=== PATIENT | male | born 1960 | race Caucasian/White ===

== ENCOUNTER 2017-10-14 06:58 | Day surgery (SDC) | payer BC ==
[2017-10-14] MEDS ORDERED: NS 500 ML IV 500 ML IV ONE (07:17)
[2017-10-14] MEDS ORDERED: TETRACAINE 0.5% OPHTH 1 DOSE AFFEYE ONE ×3 (07:25→09:10)
[2017-10-14] MEDS ORDERED: VIGAMOX 0.5% OPHTH 1 DOSE AFFEYE ONE ×4 (07:26→09:40)
[2017-10-14] MEDS ORDERED: PROLENSA OPHTH 1 DOSE AFFEYE ONE (07:37)
[2017-10-14] MEDS ORDERED: ALPHAGAN-P OPHTH 1 DOSE AFFEYE ONE (07:38)
[2017-10-14] MEDS ORDERED: VISINE-A OPHTH 1 DOSE AFFEYE ONE (07:39)
[2017-10-14] MEDS ORDERED: MYDRIACIL OPHTH 1 DOSE AFFEYE ONE ×4 (07:40→07:46)
[2017-10-14] MEDS ORDERED: AK-DILATE 2.5% OPHTH 1 DOSE OP ONE ×4 (07:40→07:46)
[2017-10-14] MEDS ORDERED: CYCLOGYL 1% OPHTH 1 DOSE OP ONE ×4 (07:40→07:46)
[2017-10-14] MEDS ORDERED: VERSED ONE (08:04)
[2017-10-14] MEDS ORDERED: VERSED IVP ONE ×2 (09:07→09:12)
[2017-10-14] MEDS ORDERED: AK-DILATE 10% OPHTH 1 DOSE AFFEYE ONE (09:14)
[2017-10-14] MEDS ORDERED: BETADINE OPHTH SOLN 5% EACHEYE ONE (09:21)
[2017-10-14] MEDS ORDERED: XYLOCAINE-MPF 1% IJ ONE (09:26)
[2017-10-14] MEDS ORDERED: BSS OPHTH (PLAIN) 500 ML with VANCOMYCIN HCL 500 MG VIAL 25 MG, ADRENALINE CHL INJ 1 MG IR ONE ×3 (09:26)
[2017-10-14] MEDS ORDERED: DUOVISC IO ONE (09:26)
[2017-10-14] MEDS ORDERED: ADRENALINE CHL INJ IJ ONE (09:26)
[2017-10-14 09:58] VITALS: BP 141/88
== END 2017-10-14 10:00 | disposition home or self-care (01) ==
LOC: SURG1 06:58
PROVIDERS: ATTEND Ophthalmology
PROC: 08DJ3ZZ Extraction of Right Lens, Percutaneous Approach (ICD-10-PCS; principal; 2017-10-14 07:30)
PROC: 08RJ3JZ Replacement of Right Lens with Synthetic Substitute, Percutaneous Approach (ICD-10-PCS; principal; 2017-10-14 07:30)
DX: H25.11 Age-related nuclear cataract, right eye (principal); H25.041 Posterior subcapsular polar age-related cataract, right eye; H52.221 Regular astigmatism, right eye
CPT/HCPCS: A4217; J0170; J2250; J3370